=== PATIENT | female | born 2000 | race Two or more races ===

== ENCOUNTER 2024-01-13 01:02 | Emergency (ER) | payer SELFPAY ==
[2024-01-13] VITALS (9 sets, daily range): BP systolic 106–137; BP diastolic 73–94; PULSE 74–102; RESP 14–20; TEMP 36.3; O2SAT 97–100; BMI 21.9
--- NOTE | 2024-01-13 01:26 | ED_ITS ---
HPI - Overdose 2 General: Chief Complaint: Overdose Stated Complaint: overdose on mushrooms Time Seen by Provider: 01/13/24 01:11 History of Present Illness: Patient presents to the ER via EMS complaining of doing a lot of streams and having a bad trip. Patient reports she had an out of body experience that she is going to . She walked in the [employer] and told him to call 911. They called 911 and they brought her here. Patient is unsure how many shrooms she ate or how long ago she took them, she also reports she was drinking whiskey and rum at the same time. Other than a bad trip patient states she has no complaints or obvious injuries. Review of Systems 2 General: Reports: 10 or more systems reviewed and unremarkable except in HPI and below Physical Exam 2 Const: COMMON NORMALS: no acute distress, average body habitus, patient oriented x3, no limitations, healthy appearing, alert and well nourished HENMT: COMMON NORMALS: normocephalic, atraumatic, hearing grossly normal bilaterally, external ears normal, Normal external nose present and moist oral mucous membranes HEAD & SCALP: normocephalic and atraumatic NOSE: Normal external nose present EXTERNAL EAR: Yes external ears normal Neck/C-Spine: COMMON NORMALS: no JVD Chest: COMMONS NORMALS: normal inspection of the chest and normal palpation of entire chest wall Resp: COMMON NORMALS: normal respiratory effort, No retractions, No use of accessory muscles and clear to auscultation bilaterally AUSCULTATION: clear to auscultation bilaterally Cardio: COMMON NORMALS: no JVD, regular rate, regular rhythm, S1 normal heart sound present, S2 normal heart sound present, No gallops present (Cardio), No clicks present (Cardio), No murmurs present (Cardio) and No rub (Cardio) R ATE: regular rate RHYTHM: regular rhythm HEART SOUNDS: S1 normal heart sound present and S2 normal heart sound present GI: COMMON NORMALS: Normal to inspection, nondistended, normoactive bowel sounds present, Soft to palpation, non-tender, No hepatosplenomegaly present and no masses PALPATION: Yes Soft to palpation and Yes No hepatosplenomegaly present Neuro: COMMON NORMALS: patient oriented x3 SENSORIUM/ORIENTATION: Yes alert Course 2 Vital Signs: Vital signs: Vital Signs Temperature 97.3 F L 01/13/24 01:03 Pulse Rate 95 01/13/24 01:41 Respiratory Rate 16 01/13/24 01:41 Blood Pressure 137/94 01/13/24 01:03 Pulse Oximetry 99 01/13/24 01:41 Oxygen Delivery Me thod Room Air 01/13/24 01:41 MDM - Overdose Medical Decision Making Lab work was obtained and included a normal psychiatric clearance. Patient's potassium 3.3, alcohol 61, positive for amphetamines and marijuana in her urine drug screen. Patient was stable during our exam and stay in ER. Patient be discharged home. Medical Records I reviewed the patient's medical records. Lab Data I reviewed the patient's lab results. 01/13/24 01:25 01/13/24 01:25 Laboratory Results WBC 13.16 10^3/uL (3.29-11.43) H 01/13/24 01:25 RBC 4.56 10^6/uL (3.85-5.65) 01/13/24 01:25 Hgb 14.00 g/dL (11.27-16.99) 01/13/24 01:25 Hct 42.2 % (36-47) 01/13/24 01:25 MCV 92.5 fl (85-98) 01/13/24 01:25 MCH 30.7 pg (27-33) 01/13/24 01:25 MCHC 33.2 g/dL (30-55) 01/13/24 01:25 RDW 14.4 % (12.1-15.1) 01/13/24 01:25 Plt Count 396 10^3/cmm (157-399) 01/13/24 01:25 MPV 8.1 fL (7.4-10.4) 01/13/24 01:25 Neut % (Auto) 84.9 % 01/13/24 01:25 Lymph % (Auto) 10.8 % 01/13/24 01:25 [place] % (Auto) 3.6 % 01/13/24 01:25 Eos % (Auto) 0.0 % 01/13/24 01:25 Baso % (Auto) 0.3 % 01/13/24 01:25 Neut # (Auto) 11.18 10^3/uL (1.8-7.7) H 01/13/24 01:25 Lymph # (Auto) 1.4 10^3/uL (0.8-4.8) 01/13/24 01:25 [place] # (Auto) 0.5 10^3/uL (0.2-0.9) 01/13/24 01:25 Eos # (Auto) 0.0 10^3/uL (0.0-0.8) 01/13/24 01:25 Baso # (Auto) 0.0 10^3/uL (0.0-0.1) 01/13/24 01:25 Nucleated RBC % (auto) 0 % 01/13/24 01:25 Nucleated RBCs # 0.0 /100WBC 01/13/24 01:25 Sodium 138 mmol/L (136-145) 01/13/24 01:25 Potassium 3.3 mmol/L (3.5-5.1) L 01/13/24 01:25 Chloride 105 mmol/L (98-107) 01/13/24 01:25 Carbon Dioxide 19 mmol/L (22-29) L 01/13/24 01:25 Anion Gap 17.3 (5-19) 01/13/24 01:25 BUN 8 mg/dL (6-20) 01/13/24 01:25 Creatinine 0.7 mg/dL (0.5-0.9) 01/13/24 01:25 GFR Calculation 104.6 mL/min (90-130) 01/13/24 01:25 Glucose 96 mg/dL (65-115) 01/13/24 01:25 Calculated Osmolality 284 mOsm/kg (285-295) L 01/13/24 01:25 Calcium 8.9 mg/dL (8.5-10.5) 01/13/24 01:25 Total Bilirubin 1.0 mg/dL (0.15-1.2) 01/13/24 01:25 AST 31 U/L (0-32) 01/13/24 01:25 ALT 27 U/L (0-33) 01/13/24 01:25 Alkaline Phosphatase 64 U/L (35-105) 01/13/24 01:25 Total Protein 8.0 g/dL (6.6-8.7) 01/13/24 01:25 Albumin 4.7 g/dL (3.5-5.2) 01/13/24 01:25 Globulin 3.3 g/dL (1.3-4.6) 01/13/24 01:25 HCG, Qual Negative (Negative) 01/13/24 01:50 Urine Color Yellow (Yellow) 01/13/24 01:50 Urine Appearance Clear (CLEAR) 01/13/24 01:50 Urine pH 6 (5-7) 01/13/24 01:50 Ur Specific [place] 1.015 (1.005-1.030) 01/13/24 01:50 Urine Protein Neg (Negative) 01/13/24 01:50 Urine Glucose (UA) Norm (Normal) 01/13/24 01:50 Urine Ketones Negative (Negative) 01/13/24 01:50 Urine Blood Neg (Negative) 01/13/24 01:50 Urine Nitrate Negative (Negative) 01/13/24 01:50 Urine Bilirubin Neg (Negative) 01/13/24 01:50 Urine Urobilinogen Neg mg/dL (Negative) 01/13/24 01:50 Ur Leukocyte Esterase Negative (Negative) 01/13/24 01:50 Salicylates < 0.3 mg/dL (3-10) L 01/13/24 01:25 Urine Opiates Screen Negative ng/mL (Negative) 01/13/24 01:50 Acetaminophen < 5.0 ug/mL (10-30) L 01/13/24 01:25 Ur Barbiturates Screen Negative ng/mL (Negative) 01/13/24 01:50 Ur Phencyclidine Scrn Negative ng/mL (Negative) 01/13/24 01:50 Ur Amphetamines Screen Positive ng/mL (Negative) H 01/13/24 01:50 U Benzodiazepines Scrn Negative ng/mL (Negative) 01/13/24 01:50 Urine Cocaine Screen Negative ng/mL (Negative) 01/13/24 01:50 U Marijuana (THC) Screen Negative ng/mL (Negative) 01/13/24 01:50 Ethyl Alcohol 61 mg/dL (0-10) H 01/13/24 01:25 No radiology studies performed this visit Discharge Plan Discharge Patient Disposition: Home Clinical Impression: Polysubstance abuse Condition: Stable Discharge Orders: Discharge ED (Routine); Ordered 01/13/24 Ordered By: Calixto Davis Patient Instructions: Polysubstance Use Disorder (ED) Activity Restrictions/Additional Instructions: Please refrain from using all illicit drugs or pharmaceuticals that have not been prescribed to you. Thank you for choosing [facility] for your healthcare needs today. Please realize that you were seen in the emergency department and that we are providing you with an emergency medical screening exam and this may not be a complete and all exclusive of all testing and/or medical workup we may need to determine your element or severity of your illness. It is very important that you follow-up as instructed with your primary care provider or specialist for the additional evaluation and to discuss your medical treatment plan. You may return to the emergency department should you have concerns or if your condition changes or worsens in any way. Coding Level of Care Code ED [employer] for Favian Smith
[2024-01-13 01:46] LABS: Basophils % 0.3 %; Hematocrit 42.2 % (36-47); Lymphocytes # 1.4 10^3/uL (0.8-4.8); Lymphocytes % 10.8 %; Mean Corpuscular HGB Conc 33.2 g/dL (30-55); Mean Corpuscular Hemoglobin 30.7 pg (27-33); Mean Corpuscular Volume 92.5 fl (85-98); Mean Platelet Volume 8.1 fL (7.4-10.4); Monocytes # 0.5 10^3/uL (0.2-0.9); Monocytes % 3.6 %; Neutrophils # 11.18 10^3/uL (1.8-7.7); Neutrophils % 84.9 %; Nucleated Red Blood Cells % 0 %; Platelet Count 396 10^3/cmm (157-399); Red Blood Count 4.56 10^6/uL (3.85-5.65); Red Cell Distribution Width 14.4 % (12.1-15.1); White Blood Count 13.16 10^3/uL (3.29-11.43)
[2024-01-13 01:56] LABS: Add Urine Microscopic? NO; Charge for UA Resulting for Rev
[2024-01-13 01:59] LABS: Bilirubin Urine Neg (Negative); Blood Urine Neg (Negative); Glucose Urine UA Norm (Normal); HCG Qualitative Urine. Negative (Negative); Ketones Urine Negative (Negative); Leukocyte Esterase Urine Negative (Negative); Nitrate Urine Negative (Negative); Protein Urine Neg (Negative); Specific Gravity, Urine 1.015 (1.005-1.030); Urine Appearance Clear (CLEAR); Urine Color Yellow (Yellow); Urobilinogen Urine Neg (Negative); pH Urine 6 (5-7)
[2024-01-13 02:01] LABS: Alanine Aminotransferase 27 U/L (0-33); Albumin Level 4.7 g/dL (3.5-5.2); Alcohol Level 61 mg/dL (0-10); Alkaline Phosphatase 64 U/L (35-105); Anion Gap 17.3 (5-19); Aspartate Amino Transferase 31 U/L (0-32); Blood Urea Nitrogen 8 mg/dL (6-20); Calcium 8.9 mg/dL (8.5-10.5); Carbon Dioxide 19 mmol/L (22-29); Chloride 105 mmol/L (98-107); Creatinine Clr Calc Pharmacy 103.1506; Globulin 3.3 g/dL (1.3-4.6); Glomerular Filtration Rate 104.6 mL/min (90-130); Glucose 96 mg/dL (65-115); Osmolality Calculated 284 mOsm/kg (285-295); Potassium 3.3 mmol/L (3.5-5.1); Sodium 138 mmol/L (136-145)
[2024-01-13 02:04] LABS: Acetaminophen < 5.0 ug/mL (10-30); Salicylate < 0.3 mg/dL (3-10)
[2024-01-13 02:06] LABS: Amphetamines Screen Urine Positive (Negative); Barbiturates Screen Urine Negative (Negative); Benzodiazepines Screen Urine Negative (Negative); Cocaine Screen Urine Negative (Negative); Opiate Screen Urine Negative (Negative); PCP Screen Urine Negative (Negative); THC Screen Urine Negative (Negative)
== END 2024-01-13 09:10 | disposition home or self-care (01) ==
PROVIDERS: Emergency Provider Emergency Medicine
DX: F19.10 Other psychoactive substance abuse, uncomplicated (principal)
CPT/HCPCS: 36415; 80053; 80306; 80307; 81003; 81025; 85025; 99283